=== PATIENT | female | born 1990 | race Two or more races ===

== ENCOUNTER 2025-01-19 19:53 | Emergency (ER) | payer OTHER ==
[~2025-01-19] VITALS: Ht 162.6 cm; Wt 57.6 kg
[2025-01-19] MEDS ORDERED: CEFTRIAXONE SODIUM 500 MG VIAL IM STA (21:02)
[2025-01-19] MEDS ORDERED: DEXAMETHASONE SODIUM PHOSPHATE 4 MG/ML VIAL IM STA (21:05)
[2025-01-19] MEDS ORDERED: DEXAMETHASONE SODIUM PHOSPHATE 4 MG/ML VIAL ONE (21:07)
[2025-01-19] MEDS ORDERED: AMOX-CLAV 500-1 EACH PO (21:24)
[2025-01-19] MEDS ORDERED: OCUFLOX5 ML OP (21:24)
== END 2025-01-19 21:40 | disposition home or self-care (01) ==
LOC: ER 19:53
DX: H66.91 Otitis media, unspecified, right ear (principal); Z88.6 Allergy status to analgesic agent